=== PATIENT | female | born 1980 | race Caucasian/White ===

== ENCOUNTER 2019-09-28 07:04 | Outpatient (CLI) | payer OTHER ==
[2019-09-28 17:58] LABS: #Basophils 0.1 thou/uL (0.0-0.2); #Eosinphils 0.3 thou/uL (0.0-0.7); #Lymphocytes 3.6 thou/uL (1.20-3.40); #Monocytes 1.2 thou/uL (0.11-0.59); #Neutrophils 6.2 thou/uL (1.40-6.50); %Eosinophils 2.7 % (0.0-10.0); %Lymphocytes 31.7 % (21.0-51.0); %Monocytes 10.3 % (0.0-10.0); %Neutrophils 54.3 % (42.0-75.0); Hemoglobin 13.6 g/dL (12.0-16.0); Mean Corpuscular HGB CONC 33.9 g/dL (32.0-36.0); Mean Corpuscular Hemoglobin 31.8 pg (27.0-31.0); Mean Corpuscular Volume 93.9 fL (78.0-98.0); Mean Platelet Volume 8.5 fL (7.4-10.4); Platelet Count 287 thou/uL (130-400); RBC Distribution Width 12.1 % (11.5-14.5); Red Blood Cell (RBC) Count 4.29 mill/uL (4.20-5.40); White Blood Cell (WBC) Count 11.3 thou/uL (4.8-10.8)
[2019-09-28 18:01] LABS: BHCG - Serum Negative (NEGATIVE); Pregs Control Background? CLEAR/WHITE (CLR/WHITE); Pregs Control Bar Appear? YES (CONTROL BAR)
[2019-09-28 18:08] LABS: Anion Gap 13 mmol/L (10-20); BUN (Urea Nitrogen) 10 mg/dL (7.0-18.7); Calc. Creatinine Clearance 0 mL/min (70-130); Calcium 9.7 mg/dL (7.8-10.44); Carbon Dioxide 23 mmol/L (22-29); Chloride 106 mmol/L (98-107); Estimated GFR-MDRD 66; Glucose 93 mg/dL (70-105); Potassium 4.2 mmol/L (3.5-5.1); Sodium 138 mmol/L (136-145)
[2019-09-28 18:09] LABS: Bacteria/HPF None Seen HPF (None Seen); Bilirubin Negative (Negative); Blood, Urine 1+ (Negative); Clarity Clear (Clear); Glucose, Urine (Dipstick) Normal (Negative); Ketone, Urine Negative (Negative); Leukocyte 75 Leu/uL (Negative); Nitrite Negative (Negative); Protein, Urine (Dipstick) Negative (Neg-Trace); Specific Gravity, Urine 1.022 (1.002-1.036); Urobilinogen Normal mg/dL (Less than 2); WBC/HPF 0-3 HPF (0-3)
[2019-09-29 10:15] LABS: INR-International Normal Ratio 0.9; Prothrombin Time 12.3 sec (12.0-14.7)
[2019-09-29 11:44] LABS: SARS-CoV-2 MS2 Positive; SARS-CoV-2 N Gene Negative; SARS-CoV-2 S Gene Negative; SARS-CoV-2 orf1ab Negative
== END 2019-09-28 07:05 | disposition home or self-care (01) ==
LOC: LABBT 07:04
PROVIDERS: ATTEND Orthopaedic Surgery
DX: Z01.812 Encounter for preprocedural laboratory examination (principal); Z11.59 Encounter for screening for other viral diseases; M17.12 Unilateral primary osteoarthritis, left knee
CPT/HCPCS: 80048; 81001; 84703; 85025; 85610; 87081; 87635; U0003

== ENCOUNTER 2019-09-28 16:00 | Inpatient (IN) | payer OTHER ==
[2019-10-02] MEDS ORDERED: Sodium Chloride 0.9% 100 ML ONE (06:28)
[2019-10-02] MEDS ORDERED: Tranexamic Acid 1,000 MG/10 ML VIAL ONE ×2 (06:28→09:56)
[2019-10-02] MEDS ORDERED: Vancomycin 1.5 GRAM/300 ML BAG ONE (06:28)
[2019-10-02] MEDS ORDERED: Bupivacaine PF 0.5% 30 ML VIAL ONE (06:32)
[2019-10-02] MEDS ORDERED: Midazolam HCl 2 mg/2 ml Vial ONE (06:37)
[2019-10-02] MEDS ORDERED: Fentanyl 100 MCG/2 ML VIAL ONE ×3 (06:37→10:04)
[2019-10-02] MEDS ORDERED: Fentanyl 100 MCG/2 ML VIAL SLOW IVP PRN (07:32)
[2019-10-02] MEDS ORDERED: Ondansetron PF 4 MG/2 ML Vial IVP PRN ×2 (07:32→07:51)
[2019-10-02] MEDS ORDERED: Zolpidem Tartrate 5 MG TAB PO PRN ×2 (07:32→07:51)
[2019-10-02] MEDS ORDERED: traMADol HCl 50 MG TAB PO PRN ×3 (07:32→07:51)
[2019-10-02] MEDS ORDERED: IBUPROFEN 200 MG PO PRN (07:35)
[2019-10-02] MEDS ORDERED: Pentazocine HCl/Naloxone HCl 50/0.5 MG TAB PO PRN (07:37)
[2019-10-02] MEDS ORDERED: Ibuprofen 200 MG TAB PO PRN (07:42)
[2019-10-02] MEDS ORDERED: Tranexamic Acid 1,000 MG in Sodium Chloride 0.9% 100 ML IVPB SCH (07:45)
[2019-10-02] MEDS ORDERED: Ropivacaine HCl/PF 250 ML in Premix Bag 1 BAG NERVE BLCK SCH (07:51)
[2019-10-02] MEDS ORDERED: Promethazine HCl 25 MG/ML VIAL IM PRN (07:51)
[2019-10-02] MEDS ORDERED: HYDROcodone/Acetaminophen 10/325 mg Tablet PO PRN (07:51)
[2019-10-02] MEDS ORDERED: Fentanyl 100 MCG/2 ML VIAL IV PRN (07:52)
[2019-10-02] MEDS ORDERED: Ketorolac Tromethamine 30 MG/ML VIAL ONE (09:15)
[2019-10-02] MEDS ORDERED: Lidocaine 1% PF 5 ML VIAL ONE (09:15)
[2019-10-02] MEDS ORDERED: Metoclopramide HCl 10 MG/2 ML VIAL ONE (09:15)
[2019-10-02] MEDS ORDERED: Dexamethasone 20 MG/5 ML VIAL ONE (09:15)
[2019-10-02] MEDS ORDERED: PROPOFOL 200 MG/20 ML VIAL ONE (09:15)
[2019-10-02] MEDS ORDERED: Ondansetron PF 4 MG/2 ML Vial ONE (09:15)
[2019-10-02] MEDS ORDERED: Ropivacaine 0.2% HCl/PF (40 MG/20 ML VIAL) ONE (09:21)
[2019-10-02] MEDS ORDERED: Bupivacaine HCl 0.5%/Epinephrine 1:200,000/PF 30 ml Vial ONE (09:21)
[2019-10-02] MEDS ORDERED: HYDROmorphone 2 MG/ML VIAL ONE (09:40)
[2019-10-02] MEDS ORDERED: Promethazine HCl 25 MG/ML VIAL SLOW IVP PRN (09:48)
[2019-10-02] MEDS ORDERED: Meperidine HCl/PF 25 MG/ML VIAL SLOW IVP PRN (09:48)
[2019-10-02] MEDS ORDERED: HYDROmorphone 2 MG/ML VIAL SLOW IVP PRN (09:48)
--- NOTE | 2019-10-02 10:19 | OP ---
DATE OF PROCEDURE: 10/02/2019 AIRPLANE RENTAL CLERK: Josh Stout PA-C PREOPERATIVE DIAGNOSES: 1. Left knee posttraumatic osteoarthrosis. 2. Retained hardware, left knee and leg. POSTOPERATIVE DIAGNOSES: 1. Left knee posttraumatic osteoarthrosis. 2. Retained hardware, left knee and leg. PROCEDURES PERFORMED: 1. Left total knee replacement using Fluency pinless navigation. 2. Hardware removal, left leg. ESTIMATED BLOOD LOSS: Minimal. COMPLICATIONS: None. IMPLANTS: Triathlon total knee system, femur size 5 cruciate-retaining femur, size 4 primary tibial baseplate, 4 x 9 mm X3 tibial bearing, and a 27 x 8 symmetric X3 patella. DISPOSITION: She went to recovery room in stable condition. INDICATIONS: This is a 39-year-old female, who has had multiple knee surgeries over the years including a tibial tubercle osteotomy and ACL reconstruction, and at this time she is hurting so bad, she just cannot get to be feeling better. She wished to have her knee replaced. DESCRIPTION OF PROCEDURE: After all appropriate consent forms were explained and signed, the patient was taken back to the operating room and at this time was given general anesthetic. Once the level of anesthesia was appropriate, a well-padded tourniquet was placed on the left leg, and the leg was then prepped and draped in standard surgical fashion. The limb was exsanguinated and tourniquet taken up to 300 mmHg. Midline incision was made with a 10 blade down through the skin and subcutaneous tissue. Bovie electrocautery was used to coagulate any brisk venous bleeding. A new blade was used to make a medial parapatellar arthrotomy. Small subperiosteal release was performed medially and excess fat pad was removed. The knee was flexed up to gain access to the femur. The femur was navigated and distal femoral resection was made. Epicondylar access was used to align our sizing jig and this was pinned in place. We sized our femur to be a size 5 cruciate-retaining femur. 4:1 cutting block was applied and pinned. Anterior and posterior chamfer cuts were then made. We navigated out our proximal tibia and made our proximal tibial resection. Spreaders were used to remove any posterior osteophytes off the back of the femur as well as remaining meniscal tissue. A long alignment jeny was then used to achieve correct rotation of our tibial baseplate and a size 4 primary tibial baseplate was chosen. This was pinned in place. We trialed the polyethylene and a 4 x 9 mm X3 tibial bearing polyethylene gave us full extension and good stability throughout range of motion. Two towel clips and a saw were used to cut our patella. Three lug nuts were drilled and a 27 x 8 symmetric X3 patella was trialed which sat nicely in the trochlear groove. We then drilled our femur and punched our tibia. All components were removed. The knee was thoroughly irrigated and dried. Cement was mixed into the cement gun on the back table. Components were then placed. The knee was held out in full extension until the cement had dried. All excess bone cement was removed. Multiple #2 Vicryl stitches as well as a Quill were used to close our extensor mechanism. 0 Quill followed by a running Monoderm was then used to close the skin. Surgicel glue was then used on the skin. Once this had dried, soft tissue dressing was applied to the limb, tourniquet was let down, and the toes pinked up nicely. The patient was then awakened and taken to the recovery room in stable condition. All counts were correct at the end of the case. The patient did receive preoperative IV antibiotics. The patient was injected with Marcaine for postoperative pain relief. During the procedure, the tibial interference screw as well as two 3.5 cortical screws were removed without any complication. The assistant housekeeping manager surgeon was present throughout the procedure and was involved in all portions of the case including the approach, placement of the prosthesis as well as closure. Job ID: [id number]
[2019-10-02 11:22] VITALS: BMI 29.7
[2019-10-02] MEDS: Ferrous Gluconate 324 MG TAB PO SCH ×2 (11:48→19:43)
[2019-10-02] MEDS: Aspirin 81 mg Enteric Coated Tablet PO SCH ×2 (11:48→19:44)
[2019-10-02] MEDS: Multivitamin W/ Minerals 1 TAB PO SCH (11:48)
[2019-10-02] MEDS: Senokot S 8.6-50 MG TAB PO SCH ×2 (11:48→19:44)
[2019-10-02] MEDS ORDERED: Ketorolac Tromethamine 30 MG/ML VIAL IVP SCH (12:00)
[2019-10-02] MEDS: CEFAZOLIN 2 GM in Premix Bag 1 BAG IVPB SCH ×2 (14:15→21:58)
[2019-10-02] MEDS: Sodium Chloride 0.9% 1,000 ML IV SCH ×2 (14:15→14:24)
[2019-10-02] MEDS: Ketorolac Tromethamine 30 MG/ML VIAL IVP SCH ×2 (14:16→19:42)
[2019-10-02] MEDS: HYDROcodone/Acetaminophen 10/325 mg Tablet PO PRN ×2 (14:18→18:36)
[2019-10-02] MEDS ORDERED: Vancomycin 1.5 GRAM/300 ML BAG 1.5 GM in Premix Bag 1 BAG IVPB SCH (18:00)
[2019-10-02] MEDS: Promethazine HCl 25 MG/ML VIAL IM PRN (19:42)
[2019-10-02] MEDS: DULoxetine 30 MG CAP PO SCH (19:44)
[2019-10-02] MEDS: traZODone HCl 150 MG TAB PO SCH (19:51)
[2019-10-02] MEDS ORDERED: TRAZODONE HCL 300 MG PO SCH (21:00)
[2019-10-02] MEDS ORDERED: Non-Formulary Item 1 EACH (Eszopiclone [Lunesta] 3 MG) PO SCH (21:00)
[2019-10-02] MEDS ORDERED: ESZOPICLONE PO SCH (21:00)
[2019-10-02] MEDS ORDERED: Famotidine 20 MG TAB PO SCH (21:45)
[2019-10-03] MEDS: Sodium Chloride 0.9% 1,000 ML IV SCH ×3 (03:45→23:33)
[2019-10-03] MEDS: Ketorolac Tromethamine 30 MG/ML VIAL IVP SCH ×5 (04:57→22:34)
[2019-10-03] MEDS: HYDROcodone/Acetaminophen 10/325 mg Tablet PO PRN ×5 (05:00→22:34)
[2019-10-03 06:01] LABS: Hemoglobin 11.6 g/dL (12.0-16.0); Mean Corpuscular HGB CONC 32.2 g/dL (32.0-36.0); Mean Corpuscular Hemoglobin 30.6 pg (27.0-31.0); Mean Corpuscular Volume 95.1 fL (78.0-98.0); Platelet Count 277 thou/uL (130-400); RBC Distribution Width 12.1 % (11.5-14.5); Red Blood Cell (RBC) Count 3.78 mill/uL (4.20-5.40); White Blood Cell (WBC) Count 14.6 thou/uL (4.8-10.8)
[2019-10-03] MEDS: Promethazine HCl 25 MG/ML VIAL IM PRN (07:24)
[2019-10-03] MEDS: Aspirin 81 mg Enteric Coated Tablet PO SCH ×2 (08:08→19:54)
[2019-10-03] MEDS: Famotidine 20 MG TAB PO SCH (08:08)
[2019-10-03] MEDS: Senokot S 8.6-50 MG TAB PO SCH ×2 (08:09→19:54)
[2019-10-03] MEDS: Multivitamin W/ Minerals 1 TAB PO SCH (08:09)
[2019-10-03] MEDS: Ferrous Gluconate 324 MG TAB PO SCH ×2 (08:09→19:54)
--- NOTE | 2019-10-03 13:34 | PRG ---
DATE OF SERVICE: 10/03/2019 SUBJECTIVE: Sandi is a 39-year-old female, postop day 1 from a left total knee arthroplasty. She is doing relatively well. She has NEWS ANCHOR now and her pain pump is functioning now. She appears comfortable this morning. She has no complaints. OBJECTIVE: VITAL SIGNS: Temperature 98.3, pulse 93, respiratory rate 14, and blood pressure 110/76. GENERAL: She is alert and oriented to person, place, time, and situation. Responsive and appropriate with examiner. Pleasant and conversive. SKIN: Her incision is clean. No strikethrough. No erythema. EXTREMITIES: She is neurovascularly intact in left lower extremity. LABORATORY DATA: Hemoglobin and hematocrit are 11.6 and 35.9. IMPRESSION: This is a 39-year-old female, postop day 1 left total knee arthroplasty, doing well. PLAN: Continue current care. Probable discharge home tomorrow. Job ID: [id number]
[2019-10-03] MEDS ORDERED: D5W 500 MG IVPB SCH (14:00)
[2019-10-03] MEDS ORDERED: LEVOFLOXACIN IVPB SCH (14:00)
[2019-10-03] MEDS: LEVOFLOXACIN IVPB SCH (14:14)
[2019-10-03] MEDS: D5W 500 MG IVPB SCH (14:14)
[2019-10-03] MEDS: diphenhydrAMINE 25 MG CAP PO PRN (18:59)
[2019-10-03] MEDS: DULoxetine 30 MG CAP PO SCH (19:54)
[2019-10-03] MEDS: traZODone HCl 150 MG TAB PO SCH (19:54)
[2019-10-04] MEDS: HYDROcodone/Acetaminophen 10/325 mg Tablet PO PRN ×3 (03:47→12:20)
[2019-10-04 05:18] LABS: Hemoglobin 10.9 g/dL (12.0-16.0); Mean Corpuscular HGB CONC 32.2 g/dL (32.0-36.0); Mean Corpuscular Hemoglobin 31.1 pg (27.0-31.0); Mean Corpuscular Volume 96.8 fL (78.0-98.0); Mean Platelet Volume 7.9 fL (7.4-10.4); Platelet Count 248 thou/uL (130-400); RBC Distribution Width 12.1 % (11.5-14.5); Red Blood Cell (RBC) Count 3.52 mill/uL (4.20-5.40); White Blood Cell (WBC) Count 10.8 thou/uL (4.8-10.8)
[2019-10-04] MEDS: Ketorolac Tromethamine 30 MG/ML VIAL IVP SCH ×2 (05:27→10:57)
[2019-10-04] MEDS: Aspirin 81 mg Enteric Coated Tablet PO SCH (08:09)
[2019-10-04] MEDS: Ferrous Gluconate 324 MG TAB PO SCH (08:09)
[2019-10-04] MEDS: Famotidine 20 MG TAB PO SCH (08:09)
[2019-10-04] MEDS: Senokot S 8.6-50 MG TAB PO SCH (08:09)
[2019-10-04] MEDS: Multivitamin W/ Minerals 1 TAB PO SCH (08:09)
[2019-10-04] MEDS: Sodium Chloride 0.9% 1,000 ML IV SCH (09:09)
[2019-10-04] MEDS: diphenhydrAMINE 25 MG CAP PO PRN (11:02)
[2019-10-04] MEDS: LEVOFLOXACIN IVPB SCH (12:20)
[2019-10-04] MEDS: D5W 500 MG IVPB SCH (12:20)
[2019-10-04 12:55] VITALS: BP 119/81; TEMP 97.9
== END 2019-10-04 14:30 | disposition home or self-care (01) | DRG 468 ==
LOC: SURG A 10-02 05:31 → SJJU 10-02 11:16
PROVIDERS: ADMIT Orthopaedic Surgery; ATTEND Orthopaedic Surgery
PROC: 0SPD0JZ Removal of Synthetic Substitute from Left Knee Joint, Open Approach (ICD-10-PCS; principal; 2019-10-02)
PROC: 0SRD0J9 Replacement of Left Knee Joint with Synthetic Substitute, Cemented, Open Approach (ICD-10-PCS; 2019-10-02)
DX: T84.89XA Other specified complication of internal orthopedic prosthetic devices, implants and grafts, initial encounter (principal); M17.32 Unilateral post-traumatic osteoarthritis, left knee; Y83.8 Other surgical procedures as the cause of abnormal reaction of the patient, or of later complication, without mention of misadventure at the time of the procedure; K44.9 Diaphragmatic hernia without obstruction or gangrene; H18.609 Keratoconus, unspecified, unspecified eye; F60.5 Obsessive-compulsive personality disorder; F41.9 Anxiety disorder, unspecified; Z88.8 Allergy status to other drugs, medicaments and biological substances; Z90.49 Acquired absence of other specified parts of digestive tract
CPT/HCPCS: 36415; 85027; 93005; 93010; C1713; C1776; J0670; J0690; J1100; J1170; J1885; J1956; J2250; J2405; J2550; J2704; J2765; J2795; J3010; J3370; J3490; Q0163; S0020

== ENCOUNTER 2019-10-06 19:39 | Emergency (ER) | payer OTHER ==
[2019-10-06 20:37] LABS: #Eosinphils 0.7 thou/uL (0.0-0.7); #Lymphocytes 2.5 thou/uL (1.20-3.40); #Monocytes 0.9 thou/uL (0.11-0.59); #Neutrophils 4.1 thou/uL (1.40-6.50); %Basophils 0.5 % (0.0-1.0); %Eosinophils 8.6 % (0.0-10.0); %Lymphocytes 30.1 % (21.0-51.0); %Monocytes 10.4 % (0.0-10.0); %Neutrophils 50.5 % (42.0-75.0); Hemoglobin 10.9 g/dL (12.0-16.0); Mean Corpuscular HGB CONC 32.9 g/dL (32.0-36.0); Mean Corpuscular Hemoglobin 31.2 pg (27.0-31.0); Mean Corpuscular Volume 94.8 fL (78.0-98.0); Mean Platelet Volume 7.6 fL (7.4-10.4); Platelet Count 361 thou/uL (130-400); RBC Distribution Width 12.1 % (11.5-14.5); White Blood Cell (WBC) Count 8.2 thou/uL (4.8-10.8)
--- NOTE | 2019-10-06 20:38 | RAD ---
EXAM: 4 views of the left knee HISTORY: Left knee redness and drainage COMPARISON: 10/05/2017 at 5:26 PM FINDINGS: No knee effusion is seen. The patient is status post left knee arthroplasty and ACL repair. There is no evidence of acute fracture or dislocation. There is air in the soft tissues in the infrapatellar region. Diffuse soft tissue swelling is seen. IMPRESSION: Subcutaneous air in the infrapatellar soft tissues is likely related to recent surgery.
[2019-10-06 20:57] LABS: ALT (SGPT) 43 U/L (8-55); AST (SGOT) 45 U/L (5-34); Albumin 3.6 g/dL (3.5-5.0); Alkaline Phosphatase 99 U/L (40-110); Anion Gap 14 mmol/L (10-20); BUN (Urea Nitrogen) 10 mg/dL (7.0-18.7); Bilirubin, Total 0.5 mg/dL (0.2-1.2); CRP (Inflammatory) 14.12 mg/dL (= or < 0.5); Calc. Creatinine Clearance 0 mL/min (70-130); Carbon Dioxide 26 mmol/L (22-29); Chloride 104 mmol/L (98-107); Estimated GFR-MDRD 83; Globulin 3.2 g/dL (2.4-3.5); Glucose 86 mg/dL (70-105); Potassium 3.9 mmol/L (3.5-5.1); Protein, Total 6.8 g/dL (6.0-8.3); Sodium 140 mmol/L (136-145)
[2019-10-06] MEDS ORDERED: HYDROcodone/Acetaminophen 5/325 mg Tablet ONE (21:29)
[2019-10-06] MEDS ORDERED: Ketorolac Tromethamine 30 MG/ML VIAL ONE (21:29)
== END 2019-10-06 22:32 | disposition home or self-care (01) ==
LOC: ERS 19:39
DX: G89.18 Other acute postprocedural pain (principal); M25.562 Pain in left knee; M25.462 Effusion, left knee; F41.9 Anxiety disorder, unspecified; F32.9 Major depressive disorder, single episode, unspecified
CPT/HCPCS: 36415; 80053; 85025; 85652; 86140; 96372; J1885